=== PATIENT | male | born 1955 | race African-American/Black ===

== ENCOUNTER → 2019-03-07 | Day surgery (SDC) | payer MEDICARE, MEDICAID, OTHER | END | disposition home or self-care (01) | LOC: RAD 08:49 | PROVIDERS: ATTEND Internal Medicine Nephrology | DX: M79.641 Pain in right hand (principal); M79.642 Pain in left hand; M19.041 Primary osteoarthritis, right hand; M19.042 Primary osteoarthritis, left hand | CPT/HCPCS: 73130 ==